=== PATIENT | female | born 1965 | race Caucasian/White ===

== ENCOUNTER 2016-05-07 11:38 | Emergency (ER) | payer MEDICARE, MEDICAID ==
[~2016-05-07] VITALS: Ht 175.3 cm; Wt 81.8 kg
[~2016-05-07 11:38] MED LIST: ABILIFY2 MG PO; ADDERALL; AMBIEN 10MG10 M1 PO; AMBIEN 10MG10 MG PO; AMBIEN5 MG PO; AMOXICILLIN 50500 MG PO; AMOXICILLIN 8751 TAB PO; AMPHETAMINE PO; ASPI325T6 PO; ATIVAN 1MG T1 MG/TAB PO; ATIVAN1 MG PO; AUGMENTIN 875 M1 TAB PO; BENADRYL; CEFTIN500 MG PO; CELEXA40 MG PO; CEPHALEXIN500 M1 PO; CLINDAMYCIN150 MG PO; CLONAZEPAM PO; DEPAKOTE DR500 MG PO; DEPAKOTE500 M1 PO; DIAMOX 250MG250 MG PO; DIAMOX SEQUELS500 M1 PO; ESKALITH C450 MG/TAB PO; FLAGYL250 MG PO; GEODON 20 MG20 MG PO; GEODON80 MG PO; IBUPROFEN 200200 MG PO; KLONOPIN 0.5MG0.5 MG PO; LEVOTHYROXINE PO; LITHIUM 30300 MG/CAP PO; LITHIUM CA150 MG/CAP PO; LITHOBID PO; LORTAB 5/500 501 TAB PO; MAGIC MOUTH PO; NAPROXEN ER500 MG PO; NEXIUM 40MG40 MG PO; NITRO-DUR0.1 MG/PAT TD; NYSTATIN OR100 MU/ML PO; OXYCONTIN 20MG20 MG PO; OXYCONTIN30 MG PO; OXYCONTIN60 MG PO; PERCOCET 325 MG1 TA2 PO; PERCOCET 325 MG1 TAB PO; PHENERGAN 25 TA25 MG PO; PROAIR HFA0.09 MG/AC IH; REGLAN 10MG10 MG/TAB PO; ROXICODONE 55 MG/TAB PO; ROXICODONE30 MG PO; SEROQUEL XR300 MG PO; SYNTHROID0.05 MG/TA PO; SYNTHROID0.075 MG/T PO; SYNTHROID0.1 MG/TAB PO; TOPROL XL 25MG25 MG PO; TRAZODONE150 MG PO; TRAZODONE50 MG PO; VALIUM 5MG T5 MG/TAB PO; VENTOLIN0.09 MG IH; VYVANCE; VYVANSE50 MG PO; WELLBUTRIN XL300 MG PO; ZIPRASIDONE; ZITHROMAX Z PA250 MG PO; ZOFRAN 4MG T4 MG/TAB PO; [UNRECOGNIZED DRUG - OTHER]; [UNRECOGNIZED DRUG - OTHER] PO
[2016-05-07 11:45] VITALS: BP 141/88; PULSE 78; TEMP 99.1
[2016-05-07] MEDS ORDERED: SEROQUEL400 MG PO (12:00)
[2016-05-07] MEDS ORDERED: NEXIUM 40MG40 MG PO (12:01)
[2016-05-07] MEDS ORDERED: SYNTHROID0.1 MG/TAB PO (12:01)
[2016-05-07] MEDS ORDERED: INDERAL 20MG20 MG PO (12:01)
[2016-05-07] MEDS ORDERED: CELEXA40 MG PO (12:07)
[2016-05-07] MEDS ORDERED: ZITHROMAX Z PA250 MG PO (12:35)
[2016-05-07] MEDS ORDERED: 00186-0370-20 IH (12:43)
== END 2016-05-07 13:21 | disposition home or self-care (01) ==
LOC: COL.ER 11:38
DX: J40 Bronchitis, not specified as acute or chronic (principal); F17.210 Nicotine dependence, cigarettes, uncomplicated

== ENCOUNTER 2016-12-26 23:22 | Emergency (ER) | payer MEDICARE, MEDICAID ==
[~2016-12-26] VITALS: Ht 175.3 cm; Wt 94.1 kg
[~2016-12-26 23:22] MED LIST changes: +00186-0370-20 IH; +INDERAL 20MG20 MG PO; +SEROQUEL400 MG PO
[2016-12-26 23:23] VITALS: BP 134/77; TEMP 98
[2016-12-27] MEDS ORDERED: 00186-0370-20 IH (00:05)
[2016-12-27] MEDS ORDERED: PREDNISONE20 MG PO (00:05)
[2016-12-27 00:23] VITALS: PULSE 94
== END 2016-12-27 00:24 | disposition home or self-care (01) ==
LOC: COL.ER 23:22
DX: J44.1 Chronic obstructive pulmonary disease with (acute) exacerbation (principal); F12.10 Cannabis abuse, uncomplicated; F17.210 Nicotine dependence, cigarettes, uncomplicated
CPT/HCPCS: J7512

== ENCOUNTER → 2017-01-29 | Outpatient (CLI) | payer MEDICARE, MEDICAID ==
[~2017-01-29] MED LIST changes: +PREDNISONE20 MG PO
== END ==
LOC: COL.PUL 11:22
DX: R05 Cough (principal); R07.9 Chest pain, unspecified; F17.210 Nicotine dependence, cigarettes, uncomplicated

== ENCOUNTER → 2017-02-10 | Outpatient (CLI) | payer MEDICARE, MEDICAID | LOC: BHSO 10:47 | DX: F31.11 Bipolar disorder, current episode manic without psychotic features, mild (principal) | CPT/HCPCS: 90791-AI ==

== ENCOUNTER → 2017-03-03 | Outpatient (CLI) | payer MEDICARE, MEDICAID | LOC: BHSO 10:21 | DX: F25.0 Schizoaffective disorder, bipolar type (principal) ==

== ENCOUNTER → 2017-04-02 | Outpatient (CLI) | payer MEDICARE, MEDICAID | LOC: BHSO 10:17 | DX: F25.0 Schizoaffective disorder, bipolar type (principal) ==

== ENCOUNTER → 2017-06-09 | Outpatient (CLI) | payer MEDICARE, MEDICAID | LOC: BHSO 10:32 | DX: F25.0 Schizoaffective disorder, bipolar type (principal) | CPT/HCPCS: G0463 ==

== ENCOUNTER → 2017-10-15 | Outpatient (CLI) | payer OTHER | LOC: BHSO 09:13 | DX: F25.0 Schizoaffective disorder, bipolar type (principal) | CPT/HCPCS: G0463 ==

== ENCOUNTER → 2017-11-18 | Outpatient (CLI) | payer OTHER | LOC: BHSO 09:36 | DX: F25.0 Schizoaffective disorder, bipolar type (principal) | CPT/HCPCS: G0463 ==

== ENCOUNTER 2017-12-01 16:15 | Emergency (ER) | payer MEDICARE, MEDICAID ==
[~2017-12-01] VITALS: Ht 175.3 cm; Wt 84.1 kg
[2017-12-01 16:24] VITALS: BP 113/82; TEMP 97.9
[2017-12-01] MEDS ORDERED: LITHIUM 60600 MG/CAP PO (16:45)
[2017-12-01 16:59] LABS: BASO % 0.2 % (0.0-2.0); EOS # 0.5 (0.0-0.7); EOS % 5.4 % (0-4.0); GRAN # 5.2 (1.4-6.5); GRAN % 55.3 % (42.2-75.2); HEMATOCRIT 42.6 % (37.0-47.0); HEMOGLOBIN 13.7 g/dl (12.5-16.0); LYMPH % 31.4 % (20.0-51.0); MEAN CELL VOLUME 90 fl (80.0-100.0); MEAN CORPUSCULAR HEMOGLOBIN 29 pg (27.0-31.0); MEAN CORPUSCULAR HGB CONC 32 g/dl (33.0-37.0); MEAN PLATELET VOLUME 9.7 fl (7.4-10.4); MONO # 0.7 (0.1-0.6); MONO % 7.4 % (1.7-9.3); PLATELET COUNT 286 K/mm3 (130-400); RED BLOOD COUNT 4.75 M/mm3 (4.10-5.30); REDCELL DISTRIBUTION WIDTH-CV 14.4 % (11.5-14.5)
[2017-12-01 17:06] LABS: PROTHROMBIN TIME 11.4 SECONDS (9.7-12.8)
[2017-12-01 17:12] LABS: ALANINE AMINOTRANSFERASE 42 U/L (9-52); ALBUMIN 4.1 gm/dL (3.5-5.0); ALKALINE PHOSPHATASE 86 U/L (50-136); ANION GAP 11 mmol/L (7-16); AST,SGOT 23 U/L (15-37); BILIRUBIN,TOTAL 0.3 mg/dL (0.0-1.0); BLOOD UREA NITROGEN 10 mg/dL (7-17); CALCIUM 9.3 mg/dL (8.4-10.2); CARBON DIOXIDE 22 mmol/L (22-30); CHLORIDE 105 mmol/L (98-107); CREATININE, serum 0.61 mg/dL (0.52-1.25); GLUCOSE 98 mg/dL (74-106); POTASSIUM 4.2 mmol/L (3.4-5.0); SODIUM 137 mmol/L (137-145); TOTAL PROTEIN 7.5 gm/dL (6.4-8.2)
[2017-12-01] MEDS ORDERED: SEROQUEL400 MG PO (17:13)
[2017-12-01] MEDS ORDERED: NEXIUM 20MG20 MG PO (17:14)
[2017-12-01] MEDS ORDERED: SYNTHROID 0.10.15 MG PO (17:14)
[2017-12-01] MEDS ORDERED: BELSOMRA20 MG PO (17:16)
[2017-12-01 17:21] LABS: TROPONIN-I < 0.012 ng/mL (0.000-0.034)
[2017-12-01 17:34] LABS: ARTERIAL BLD GAS O2 SATURATION 96.4 % (92-100); ARTERIAL BLD GAS TCO2 CT 21.7; ARTERIAL BLOOD GAS BASE EXCESS -3.2 (-2-2); ARTERIAL BLOOD GAS HCO3 20.7 meq/L (22-26); ARTERIAL BLOOD GAS PCO2 34.1 mmHg (35-45); ARTERIAL BLOOD GAS PO2 85.8 mmHg (80-100)
[2017-12-01] MEDS ORDERED: CEPHALEXIN500 M1 PO (18:40)
[2017-12-01 18:49] VITALS: PULSE 81
== END 2017-12-01 18:49 | disposition home or self-care (01) ==
LOC: COL.ER 16:15
PROVIDERS: Emergency Medicine
DX: R07.9 Chest pain, unspecified (principal); E03.9 Hypothyroidism, unspecified; F31.9 Bipolar disorder, unspecified; M54.9 Dorsalgia, unspecified; G89.29 Other chronic pain; F12.10 Cannabis abuse, uncomplicated; F17.210 Nicotine dependence, cigarettes, uncomplicated; Z90.49 Acquired absence of other specified parts of digestive tract; Z90.710 Acquired absence of both cervix and uterus
CPT/HCPCS: Q9967

== ENCOUNTER → 2017-12-18 | Outpatient (CLI) | payer MEDICARE, MEDICAID ==
[~2017-12-18] MED LIST changes: +BELSOMRA20 MG PO; +LITHIUM 60600 MG/CAP PO; +NEXIUM 20MG20 MG PO; +SYNTHROID 0.10.15 MG PO
== END ==
LOC: BHSO 09:44
DX: F25.0 Schizoaffective disorder, bipolar type (principal)
CPT/HCPCS: G0463

== ENCOUNTER 2018-01-17 08:10 | Emergency (ER) | payer MEDICARE, MEDICAID ==
[~2018-01-17] VITALS: Ht 175.3 cm; Wt 82.7 kg
[2018-01-17 08:14] VITALS: TEMP 97.8
[2018-01-17 09:25] LABS: COLLECTION METHOD CLEAN CATCH
[2018-01-17 09:28] LABS: BASO % 0.2 % (0.0-2.0); EOS # 0.1 (0.0-0.7); EOS % 0.8 % (0-4.0); GRAN # 9.8 (1.4-6.5); GRAN % 73.9 % (42.2-75.2); HEMATOCRIT 43.5 % (37.0-47.0); HEMOGLOBIN 13.8 g/dl (12.5-16.0); LYMPH # 2.5 (1.2-3.4); MEAN CELL VOLUME 92 fl (80.0-100.0); MEAN CORPUSCULAR HEMOGLOBIN 29 pg (27.0-31.0); MEAN CORPUSCULAR HGB CONC 32 g/dl (33.0-37.0); MEAN PLATELET VOLUME 9.5 fl (7.4-10.4); MONO # 0.8 (0.1-0.6); MONO % 5.8 % (1.7-9.3); PLATELET COUNT 339 K/mm3 (130-400); RED BLOOD COUNT 4.72 M/mm3 (4.10-5.30); REDCELL DISTRIBUTION WIDTH-CV 14.1 % (11.5-14.5)
[2018-01-17 09:34] LABS: LITHIUM 0.6 mmol/L (0.6-1.2)
[2018-01-17 09:39] LABS: ALBUMIN 4.6 gm/dL (3.5-5.0); BILIRUBIN,TOTAL 0.4 mg/dL (0.0-1.0); C-REACTIVE PROTEIN 0.6 mg/dL (0.0-0.9); CALCIUM 10.3 mg/dL (8.4-10.2); CREATININE, serum 0.6 mg/dL (0.52-1.25); TOTAL PROTEIN 8.8 gm/dL (6.4-8.2)
[2018-01-17 09:40] LABS: AMORPHOUS CRYSTAL Present /uL; MUCOUS Present /lpf; PH 7 (5-8); SQUAMOUS EPITHELIAL 20-50 /hpf; URINE APPEARANCE Cloudy; URINE BACTERIA Rare /hpf; URINE BILIRUBIN Negative (NEGATIVE); URINE BLOOD Negative (NEGATIVE); URINE COLOR Yellow; URINE GLUCOSE Negative (NEGATIVE); URINE KETONE Negative (NEGATIVE); URINE LEUKOCYTE ESTERASE Negative (NEGATIVE); URINE NITRATE Negative (NEGATIVE); URINE PROTEIN(semi-quant) 1+ (NEGATIVE); URINE RBC 0-2 /hpf; URINE UROBILINOGEN Negative (NEGATIVE)
[2018-01-17 09:42] LABS: TRICYCLIC ANTIDEPRESS URINE POSITIVE
[2018-01-17] MEDS ORDERED: ZOFRAN 4MG T4 MG/TAB PO (10:21)
[2018-01-17 10:45] VITALS: BP 172/95; PULSE 69
[2018-01-18] MEDS ORDERED: PHENERGAN 25 TA25 MG PO (00:55)
== END 2018-01-17 10:56 | disposition home or self-care (01) ==
LOC: COL.ER 08:10
PROVIDERS: Physician Assistant
DX: R11.10 Vomiting, unspecified (principal); I10 Essential (primary) hypertension; J44.9 Chronic obstructive pulmonary disease, unspecified; K21.9 Gastro-esophageal reflux disease without esophagitis; E03.9 Hypothyroidism, unspecified; F31.9 Bipolar disorder, unspecified; F17.210 Nicotine dependence, cigarettes, uncomplicated; Z90.49 Acquired absence of other specified parts of digestive tract; Z90.710 Acquired absence of both cervix and uterus
CPT/HCPCS: J2405; J7030

== ENCOUNTER 2018-01-17 22:40 | Emergency (ER) | payer MEDICARE, MEDICAID ==
[2018-01-17 22:43] VITALS: BP 146/89; TEMP 98.8
[2018-01-18] MEDS ORDERED: PHENERGAN 25 TA25 MG PO (00:55)
[2018-01-18 02:15] VITALS: PULSE 80
== END 2018-01-18 02:15 | disposition home or self-care (01) ==
LOC: COL.ER 22:40
DX: R11.10 Vomiting, unspecified (principal); F17.210 Nicotine dependence, cigarettes, uncomplicated; F12.90 Cannabis use, unspecified, uncomplicated; F32.9 Major depressive disorder, single episode, unspecified; Z90.49 Acquired absence of other specified parts of digestive tract; Z85.41 Personal history of malignant neoplasm of cervix uteri
CPT/HCPCS: J2550; J2765; J7030

== ENCOUNTER → 2018-04-16 | Outpatient (CLI) | payer MEDICARE, MEDICAID | LOC: BHSO 09:00 | DX: F25.0 Schizoaffective disorder, bipolar type (principal) | CPT/HCPCS: G0463 ==

== ENCOUNTER → 2018-06-15 | Outpatient (CLI) | payer MEDICARE, MEDICAID | LOC: BHSO 14:53 | DX: F25.0 Schizoaffective disorder, bipolar type (principal) | CPT/HCPCS: G0463 ==

== ENCOUNTER 2018-07-01 05:02 | Emergency (ER) | payer MEDICARE, MEDICAID ==
[~2018-07-01] VITALS: Ht 175.3 cm; Wt 81.8 kg
[2018-07-01 05:15] VITALS: BP 170/83; PULSE 104; TEMP 98.6
[2018-07-01 05:26] LABS: COLLECTION METHOD CLEAN CATCH
[2018-07-01 05:38] LABS: MUCOUS Present /lpf; PH 8 (5-8); SQUAMOUS EPITHELIAL 0-2 /hpf; URINE APPEARANCE Hazy; URINE BACTERIA Rare /hpf; URINE BILIRUBIN Negative (NEGATIVE); URINE BLOOD 2+ (NEGATIVE); URINE COLOR Straw; URINE GLUCOSE Negative (NEGATIVE); URINE KETONE Negative (NEGATIVE); URINE LEUKOCYTE ESTERASE 3+ (NEGATIVE); URINE NITRATE Negative (NEGATIVE); URINE PROTEIN(semi-quant) Negative (NEGATIVE); URINE RBC 0-2 /hpf; URINE UROBILINOGEN Negative (NEGATIVE)
[2018-07-01] MEDS ORDERED: PYRIDIUM 100MG100 MG PO (05:49)
[2018-07-01] MEDS ORDERED: OMNICEF 300MG300 MG PO (05:49)
== END 2018-07-01 06:10 | disposition home or self-care (01) ==
LOC: COL.ER 05:02
PROVIDERS: Emergency Medicine
DX: N39.0 Urinary tract infection, site not specified (principal); F31.9 Bipolar disorder, unspecified; F17.210 Nicotine dependence, cigarettes, uncomplicated; Z90.710 Acquired absence of both cervix and uterus

== ENCOUNTER → 2018-08-14 | Outpatient (CLI) | payer MEDICARE, MEDICAID ==
[~2018-08-14] MED LIST changes: +OMNICEF 300MG300 MG PO; +PYRIDIUM 100MG100 MG PO
== END ==
LOC: BHSO 14:11
DX: F25.0 Schizoaffective disorder, bipolar type (principal)
CPT/HCPCS: G0463

== ENCOUNTER 2018-08-16 13:58 | Emergency (ER) | payer MEDICARE, MEDICAID ==
[~2018-08-16] VITALS: Ht 172.7 cm; Wt 72.7 kg
[2018-08-16 14:07] VITALS: TEMP 99
[2018-08-16 15:06] LABS: BASO % 0.2 % (0.0-2.0); EOS # 0.2 (0.0-0.7); EOS % 1.4 % (0-4.0); GRAN % 58.5 % (42.2-75.2); HEMATOCRIT 37.6 % (37.0-47.0); HEMOGLOBIN 12.3 g/dl (12.5-16.0); LYMPH # 3.9 (1.2-3.4); LYMPH % 32.1 % (20.0-51.0); MEAN CELL VOLUME 90 fl (80.0-100.0); MEAN CORPUSCULAR HEMOGLOBIN 30 pg (27.0-31.0); MEAN CORPUSCULAR HGB CONC 33 g/dl (33.0-37.0); MEAN PLATELET VOLUME 9.8 fl (7.4-10.4); MONO # 0.9 (0.1-0.6); MONO % 7.6 % (1.7-9.3); PLATELET COUNT 296 K/mm3 (130-400); RED BLOOD COUNT 4.16 M/mm3 (4.10-5.30); REDCELL DISTRIBUTION WIDTH-CV 13.2 % (11.5-14.5)
[2018-08-16 15:32] LABS: ALANINE AMINOTRANSFERASE 43 U/L (9-52); ALKALINE PHOSPHATASE 77 U/L (50-136); ANION GAP 7 mmol/L (7-16); AST,SGOT 65 U/L (15-37); BILIRUBIN,TOTAL 0.3 mg/dL (0.0-1.0); BLOOD UREA NITROGEN 13 mg/dL (7-17); CALCIUM 9.1 mg/dL (8.4-10.2); CARBON DIOXIDE 26 mmol/L (22-30); CHLORIDE 104 mmol/L (98-107); CREATININE, serum 0.57 (0.52-1.25); GLUCOSE 99 mg/dL (74-106); SODIUM 136 mmol/L (137-145); TOTAL PROTEIN 7.2 gm/dL (6.4-8.2)
[2018-08-16 15:33] LABS: ACETAMINOPHEN < 10 ug/mL (10-30); ALCOHOL(ethanol),MEDICAL < 10 mg/dL; SALICYLATE < 1.0 mg/dL
[2018-08-16 15:34] LABS: COLLECTION METHOD CLEAN CATCH
[2018-08-16 15:38] LABS: LITHIUM 0.4 mmol/L (0.6-1.2)
[2018-08-16 15:41] LABS: PH 8 (5-8); SQUAMOUS EPITHELIAL 0-2 /hpf; URINE APPEARANCE Clear; URINE BACTERIA None Seen /hpf; URINE BILIRUBIN Negative (NEGATIVE); URINE BLOOD Negative (NEGATIVE); URINE COLOR Colorless; URINE GLUCOSE Negative (NEGATIVE); URINE KETONE Negative (NEGATIVE); URINE LEUKOCYTE ESTERASE Negative (NEGATIVE); URINE NITRATE Negative (NEGATIVE); URINE PROTEIN(semi-quant) Negative (NEGATIVE); URINE RBC 0-2 /hpf; URINE UROBILINOGEN Negative (NEGATIVE)
[2018-08-16 15:45] LABS: TRICYCLIC ANTIDEPRESS URINE POSITIVE
[2018-08-17 14:45] VITALS: BP 139/89; PULSE 97
== END 2018-08-17 14:45 ==
LOC: COL.ER 13:58
PROVIDERS: Emergency Medicine
DX: F29 Unspecified psychosis not due to a substance or known physiological condition (principal); F30.9 Manic episode, unspecified; I10 Essential (primary) hypertension; E03.9 Hypothyroidism, unspecified; F17.210 Nicotine dependence, cigarettes, uncomplicated; F12.90 Cannabis use, unspecified, uncomplicated
CPT/HCPCS: J1200; J1630; J2060

== ENCOUNTER → 2018-08-28 | Outpatient (REF) | LOC: ZLAB.WCH 09:10 | DX: Z01.89 Encounter for other specified special examinations (principal) ==

== ENCOUNTER 2018-11-19 16:28 | Emergency (ER) | payer MEDICARE, MEDICAID ==
[~2018-11-19] VITALS: Ht 175.3 cm; Wt 86.8 kg
[2018-11-19 16:31] VITALS: BP 133/74; TEMP 97.5
[2018-11-19] MEDS ORDERED: SEROQUEL400 MG PO (16:34)
[2018-11-19] MEDS ORDERED: LITHIUM 30300 MG/CAP PO (16:34)
[2018-11-19 16:40] VITALS: PULSE 120
== END 2018-11-19 17:20 | disposition left against medical advice (07) ==
LOC: COL.ER 16:28
DX: M54.5 Low back pain (principal); I10 Essential (primary) hypertension; F31.9 Bipolar disorder, unspecified

== ENCOUNTER 2019-02-03 20:17 | Emergency (ER) | payer MEDICARE, MEDICAID ==
[~2019-02-03] VITALS: Ht 175.3 cm; Wt 37.3 kg
[2019-02-03 20:21] VITALS: TEMP 98.2
[2019-02-03] MEDS ORDERED: PRILOTC (20:36)
[2019-02-03] MEDS ORDERED: ESKALITH C450 MG/TAB PO (20:36)
[2019-02-03] MEDS ORDERED: INDERAL 20MG20 MG PO (20:37)
[2019-02-03] MEDS ORDERED: DOXYCYCLINE 10100 MG PO (20:54)
[2019-02-03 21:50] VITALS: BP 128/82; PULSE 88
== END 2019-02-03 21:50 | disposition home or self-care (01) ==
LOC: COL.ER 20:17
DX: J01.90 Acute sinusitis, unspecified (principal); F32.9 Major depressive disorder, single episode, unspecified; E03.9 Hypothyroidism, unspecified; J44.9 Chronic obstructive pulmonary disease, unspecified; F17.210 Nicotine dependence, cigarettes, uncomplicated; Z90.710 Acquired absence of both cervix and uterus

== ENCOUNTER 2019-06-26 20:08 | Emergency (ER) | payer MEDICARE ==
[~2019-06-26] VITALS: Ht 175.3 cm; Wt 79.5 kg
[~2019-06-26 20:08] MED LIST changes: +DOXYCYCLINE 10100 MG PO; +PRILOTC
[2019-06-26 20:24] VITALS: BP 221/115; PULSE 64; TEMP 97.7
== END 2019-06-26 22:13 | disposition left against medical advice (07) ==
LOC: COL.ER 20:08
DX: F33.9 Major depressive disorder, recurrent, unspecified (principal); H10.9 Unspecified conjunctivitis; I10 Essential (primary) hypertension; E03.9 Hypothyroidism, unspecified; Z90.710 Acquired absence of both cervix and uterus; Z90.89 Acquired absence of other organs

== ENCOUNTER 2021-04-01 11:18 | Emergency (ER) | payer MEDICARE ==
[~2021-04-01] VITALS: Ht 175.3 cm; Wt 93.2 kg
[~2021-04-01 11:18] MED LIST changes: +CLEOCIN HCL300 MG PO; +RT ADVAIR 528 DISKUS IH
[2021-04-01] MEDS ORDERED: VIGAMOX 0.5% 3 M3 ML OP (11:58)
[2021-04-01 12:14] VITALS: BP 128/64; PULSE 80; TEMP 98.9
== END 2021-04-01 12:18 | disposition home or self-care (01) ==
LOC: COL.ER 11:18
DX: H10.89 Other conjunctivitis (principal); F31.9 Bipolar disorder, unspecified; J43.9 Emphysema, unspecified; Z97.3 Presence of spectacles and contact lenses; Z88.6 Allergy status to analgesic agent; Z88.8 Allergy status to other drugs, medicaments and biological substances; Z79.899 Other long term (current) drug therapy; Z79.51 Long term (current) use of inhaled steroids

== ENCOUNTER 2021-06-03 18:24 | Emergency (ER) | payer MEDICARE ==
[~2021-06-03] VITALS: Ht 175.3 cm; Wt 95.5 kg
[~2021-06-03 18:24] MED LIST changes: +VIGAMOX 0.5% 3 M3 ML OP
[2021-06-03 18:35] VITALS: TEMP 97.8
[2021-06-03] MEDS ORDERED: 00186-0370-20 IH (20:26)
[2021-06-03 20:28] VITALS: BP 173/101; PULSE 94
== END 2021-06-03 20:43 | disposition home or self-care (01) ==
LOC: COL.ER 18:24
DX: R51.9 Headache, unspecified (principal); F31.9 Bipolar disorder, unspecified; F41.9 Anxiety disorder, unspecified; J44.9 Chronic obstructive pulmonary disease, unspecified; Z88.6 Allergy status to analgesic agent; Z20.822 Contact with and (suspected) exposure to COVID-19; Z79.899 Other long term (current) drug therapy
CPT/HCPCS: J1200; J2765

== ENCOUNTER 2021-06-26 19:18 | Emergency (ER) | payer MEDICARE ==
[~2021-06-26] VITALS: Ht 175.3 cm; Wt 102.3 kg
[2021-06-26 19:22] VITALS: TEMP 97.2
[2021-06-26 19:55] LABS: COLLECTION METHOD CLEAN CATCH
[2021-06-26 19:58] LABS: BASO % 0.2 % (0.0-2.0); EOS # 0.3 K/mm3 (0.0-0.7); EOS % 4.1 % (0.0-4.0); GRAN # 3.8 K/mm3 (1.4-6.5); GRAN % 59.2 % (42.2-75.2); HEMATOCRIT 41.5 % (37.0-47.0); HEMOGLOBIN 13.6 g/dl (12.5-16.0); LYMPH # 1.9 K/mm3 (1.2-3.4); LYMPH % 30.4 % (20.0-51.0); MEAN CELL VOLUME 90 fl (80.0-100.0); MEAN CORPUSCULAR HEMOGLOBIN 29 pg (27-31); MEAN CORPUSCULAR HGB CONC 33 g/dl (33.0-37.0); MEAN PLATELET VOLUME 9.6 fl (7.4-10.4); MONO # 0.4 K/mm3 (0.1-0.6); MONO % 5.8 % (1.7-9.3); PLATELET COUNT 244 K/mm3 (130-400); RED BLOOD COUNT 4.63 M/mm3 (4.10-5.30); REDCELL DISTRIBUTION WIDTH-CV 16.2 % (11.5-14.5)
[2021-06-26 20:14] LABS: BILIRUBIN,TOTAL 0.3 mg/dL (0.2-1.2); CREATININE, serum 0.79 mg/dL (0.57-1.11); POTASSIUM 3.5 mmol/L (3.5-4.5); TOTAL PROTEIN 7.8 gm/dL (6.2-8.1)
[2021-06-26 20:16] LABS: MUCOUS Present (NOT PRESENT); PH 5 (5-8); URINE APPEARANCE Hazy (CLEAR/HAZY); URINE BACTERIA Rare /hpf (NONE SEEN); URINE BILIRUBIN Negative (NEGATIVE); URINE BLOOD Negative (NEGATIVE); URINE COLOR Yellow (YELLOW); URINE GLUCOSE Negative (NEGATIVE); URINE KETONE Negative (NEGATIVE); URINE LEUKOCYTE ESTERASE Negative (NEGATIVE); URINE NITRATE Negative (NEGATIVE); URINE PROTEIN(semi-quant) Negative (NEGATIVE); URINE UROBILINOGEN Negative (NEGATIVE)
[2021-06-26] MEDS ORDERED: CELEXA10 MG PO (20:16)
[2021-06-26] MEDS ORDERED: ZOFRAN ODT4 MG PO (20:42)
[2021-06-26] MEDS ORDERED: MACROBID 1100 MG/CAP PO (20:42)
[2021-06-26 21:01] VITALS: BP 142/84; PULSE 91
== END 2021-06-26 21:02 | disposition home or self-care (01) ==
LOC: COL.ER 19:18
PROVIDERS: Emergency Medicine
DX: K52.9 Noninfective gastroenteritis and colitis, unspecified (principal); N39.0 Urinary tract infection, site not specified; R74.8 Abnormal levels of other serum enzymes; F17.210 Nicotine dependence, cigarettes, uncomplicated; Z90.49 Acquired absence of other specified parts of digestive tract; Z20.822 Contact with and (suspected) exposure to COVID-19; Z32.02 Encounter for pregnancy test, result negative
CPT/HCPCS: J2405; J7030

== ENCOUNTER 2021-10-17 11:55 | Emergency (ER) | payer MEDICARE ==
[~2021-10-17] VITALS: Ht 175.3 cm; Wt 100.5 kg
[~2021-10-17 11:55] MED LIST changes: +CELEXA10 MG PO; +MACROBID 1100 MG/CAP PO; +ZOFRAN ODT4 MG PO
[2021-10-17 12:15] VITALS: BP 130/78; PULSE 85; TEMP 97.9
== END 2021-10-17 13:55 | disposition left against medical advice (07) ==
LOC: COL.ER 11:55
DX: J98.9 Respiratory disorder, unspecified (principal)

== ENCOUNTER 2021-11-12 22:58 | Emergency (ER) | payer MEDICARE ==
[~2021-11-12] VITALS: Ht 175.3 cm; Wt 96.4 kg
[2021-11-13 00:57] VITALS: BP 157/83; PULSE 90; TEMP 98.6
== END 2021-11-13 00:57 | disposition home or self-care (01) ==
LOC: COL.ER 22:58
DX: S00.83XA Contusion of other part of head, initial encounter (principal); S40.012A Contusion of left shoulder, initial encounter; Y04.8XXA Assault by other bodily force, initial encounter

== ENCOUNTER → 2021-12-19 | Outpatient (CLI) | payer MEDICARE | LOC: COL.RAD 10:13 | DX: Z12.2 Encounter for screening for malignant neoplasm of respiratory organs (principal); F17.210 Nicotine dependence, cigarettes, uncomplicated ==

== ENCOUNTER 2021-12-20 14:50 | Emergency (ER) | payer MEDICARE ==
[~2021-12-20] VITALS: Ht 175.3 cm; Wt 96.8 kg
[2021-12-20 14:59] VITALS: TEMP 97.1
[2021-12-20 15:27] LABS: BASO % 0.1 % (0.0-2.0); EOS # 0.3 K/mm3 (0.0-0.7); EOS % 3.2 % (0.0-4.0); GRAN % 62.9 % (42.2-75.2); HEMATOCRIT 41.5 % (37.0-47.0); HEMOGLOBIN 13.6 g/dl (12.5-16.0); LYMPH # 2.3 K/mm3 (1.2-3.4); LYMPH % 28.7 % (20.0-51.0); MEAN CELL VOLUME 91 fl (80.0-100.0); MEAN CORPUSCULAR HEMOGLOBIN 30 pg (27-31); MEAN CORPUSCULAR HGB CONC 33 g/dl (33.0-37.0); MONO # 0.4 K/mm3 (0.1-0.6); MONO % 4.8 % (1.7-9.3); PLATELET COUNT 251 K/mm3 (130-400); RED BLOOD COUNT 4.57 M/mm3 (4.10-5.30); REDCELL DISTRIBUTION WIDTH-CV 13.9 % (11.5-14.5)
[2021-12-20 15:48] LABS: ALANINE AMINOTRANSFERASE 41 U/L (0-55); ALBUMIN 3.9 gm/dL (3.5-5.0); ALKALINE PHOSPHATASE 82 U/L (40-150); ANION GAP 11 mmol/L (7-16); AST,SGOT 27 U/L (5-34); BILIRUBIN,TOTAL 0.2 mg/dL (0.2-1.2); BLOOD UREA NITROGEN 14 mg/dL (10-20); CALCIUM 9.4 mg/dL (8.4-10.2); CARBON DIOXIDE 22 mmol/L (22-29); CHLORIDE 106 mmol/L (98-107); CREATININE, serum 0.79 mg/dL (0.57-1.11); GLUCOSE 141 mg/dL (70-99); POTASSIUM 3.9 mmol/L (3.5-4.5); SODIUM 139 mmol/L (136-145); TOTAL PROTEIN 7.5 gm/dL (6.2-8.1)
[2021-12-20 15:49] LABS: PROTHROMBIN TIME 11.3 SECONDS (9.7-12.8)
[2021-12-20 15:52] LABS: PARTIAL THROMBOPLASTIN TIME 30.4 SECONDS (26.0-37.0)
[2021-12-20 15:55] LABS: TROPONIN-I < 0.010 ng/mL (0.00-0.033)
[2021-12-20 17:23] VITALS: BP 143/104; PULSE 81
== END 2021-12-20 17:23 | disposition home or self-care (01) ==
LOC: COL.ER 14:50
PROVIDERS: Family Medicine
DX: J44.9 Chronic obstructive pulmonary disease, unspecified (principal); F17.210 Nicotine dependence, cigarettes, uncomplicated

== ENCOUNTER 2022-02-07 12:10 | Emergency (ER) | payer MEDICARE ==
[~2022-02-07] VITALS: Ht 175.3 cm; Wt 95.5 kg
[2022-02-07 15:51] LABS: BASO % 0.3 % (0.0-2.0); EOS # 0.3 K/mm3 (0.0-0.7); GRAN # 5.9 K/mm3 (1.4-6.5); GRAN % 63.4 % (42.2-75.2); HEMATOCRIT 40.1 % (37.0-47.0); HEMOGLOBIN 13.4 g/dl (12.5-16.0); LYMPH # 2.5 K/mm3 (1.2-3.4); LYMPH % 26.6 % (20.0-51.0); MEAN CELL VOLUME 90 fl (80.0-100.0); MEAN CORPUSCULAR HEMOGLOBIN 30 pg (27-31); MEAN CORPUSCULAR HGB CONC 33 g/dl (33.0-37.0); MEAN PLATELET VOLUME 10.2 fl (7.4-10.4); MONO # 0.6 K/mm3 (0.1-0.6); MONO % 6.4 % (1.7-9.3); PLATELET COUNT 262 K/mm3 (130-400); RED BLOOD COUNT 4.45 M/mm3 (4.10-5.30); REDCELL DISTRIBUTION WIDTH-CV 13.3 % (11.5-14.5)
[2022-02-07 16:05] LABS: ALANINE AMINOTRANSFERASE 42 U/L (0-55); ALBUMIN 3.9 gm/dL (3.5-5.0); ALKALINE PHOSPHATASE 111 U/L (40-150); ANION GAP 9 mmol/L (7-16); AST,SGOT 32 U/L (5-34); BILIRUBIN,TOTAL 0.3 mg/dL (0.2-1.2); BLOOD UREA NITROGEN 16 mg/dL (10-20); C-REACTIVE PROTEIN 0.62 mg/dL (0.00-0.50); CALCIUM 9.4 mg/dL (8.4-10.2); CARBON DIOXIDE 28 mmol/L (22-29); CHLORIDE 103 mmol/L (98-107); CREATININE, serum 0.72 mg/dL (0.57-1.11); GLUCOSE 99 mg/dL (70-99); POTASSIUM 4.5 mmol/L (3.5-4.5); SODIUM 140 mmol/L (136-145); TOTAL PROTEIN 7.3 gm/dL (6.2-8.1)
[2022-02-07 16:16] LABS: TROPONIN-I < 0.010 ng/mL (0.00-0.033)
[2022-02-07 16:19] LABS: TRICYCLIC ANTIDEPRESS URINE POSITIVE
[2022-02-07 16:39] LABS: COLLECTION METHOD CLEAN CATCH
[2022-02-07 16:52] LABS: SQUAMOUS EPITHELIAL None Seen /hpf (0-10); URINE APPEARANCE Clear (CLEAR/HAZY); URINE BACTERIA None Seen /hpf (NONE SEEN); URINE COLOR Yellow (YELLOW); URINE PROTEIN(semi-quant) Negative (NEGATIVE); URINE RBC None Seen /hpf (0-2)
[2022-02-07 16:53] LABS: URINE BLOOD Negative (NEGATIVE); URINE GLUCOSE Negative (NEGATIVE); URINE KETONE Negative (NEGATIVE); URINE NITRATE Negative (NEGATIVE); URINE UROBILINOGEN 0.2 E.U/dL (0.2-1.0)
[2022-02-07] MEDS ORDERED: ZITHROMAX Z PA250 MG PO (18:34)
[2022-02-07] MEDS ORDERED: PREDNISONE20 MG PO (18:34)
[2022-02-07 19:26] VITALS: BP 133/79; PULSE 82; TEMP 98.5
== END 2022-02-07 19:30 | disposition home or self-care (01) ==
LOC: COL.ER 12:10
PROVIDERS: Nurse Practitioner
DX: J20.9 Acute bronchitis, unspecified (principal); F17.210 Nicotine dependence, cigarettes, uncomplicated; Z20.822 Contact with and (suspected) exposure to COVID-19
CPT/HCPCS: J1885; J2060; J2270; J7030; J7512

== ENCOUNTER 2022-06-18 11:37 | Emergency (ER) | payer MEDICARE ==
[~2022-06-18] VITALS: Ht 185.4 cm; Wt 90.9 kg
[~2022-06-18 11:37] MED LIST changes: +ASPIRIN 32325 MG/TAB; +BELSOMRA20 MG; +COGENTIN 1MG1 MG/TAB PO; +CRESTOR5 MG PO; +LEADER CLE17 GM/Dose PO; +LIPITOR 10MG10 MG PO; +LOTRISONE CREAM15 GM TP; +MASON NATURAL2000 IU PO; +MULTI VITAMINS1 TAB PO; +NORVASC 5MG5 MG/TAB PO; +PRIL40 PO; +PROTONIX 40MG T40 MG PO; +SEROQUEL 200MG200 MG PO; +SYNTHROID0.1 MG/TAB; +VYVANSE70 MG PO; +ZESTRIL 20MG TA20 MG PO
[2022-06-18 12:58] LABS: COLLECTION METHOD CLEAN CATCH
[2022-06-18 12:59] LABS: BASO % 0.4 % (0.0-2.0); EOS # 0.2 K/mm3 (0.0-0.7); EOS % 2.7 % (0.0-4.0); GRAN # 4.9 K/mm3 (1.4-6.5); GRAN % 59.9 % (42.2-75.2); HEMOGLOBIN 11.9 g/dl (12.5-16.0); LYMPH # 2.2 K/mm3 (1.2-3.4); MEAN CELL VOLUME 85 fl (80.0-100.0); MEAN CORPUSCULAR HEMOGLOBIN 29 pg (27-31); MEAN CORPUSCULAR HGB CONC 34 g/dl (33.0-37.0); MEAN PLATELET VOLUME 8.7 fl (7.4-10.4); MONO # 0.8 K/mm3 (0.1-0.6); MONO % 9.6 % (1.7-9.3); PLATELET COUNT 325 K/mm3 (130-400); RED BLOOD COUNT 4.18 M/mm3 (4.10-5.30); REDCELL DISTRIBUTION WIDTH-CV 13.6 % (11.5-14.5)
[2022-06-18 13:01] LABS: HEMATOCRIT 35.4 % (37.0-47.0)
[2022-06-18 13:08] LABS: URINE APPEARANCE Clear (CLEAR/HAZY); URINE COLOR Yellow (YELLOW)
[2022-06-18 13:09] LABS: URINE BLOOD 1+ (NEGATIVE); URINE GLUCOSE Negative (NEGATIVE); URINE KETONE Negative (NEGATIVE); URINE NITRATE Negative (NEGATIVE); URINE PROTEIN(semi-quant) Negative (NEGATIVE); URINE UROBILINOGEN 0.2 E.U/dL (0.2-1.0)
[2022-06-18 13:12] LABS: ALANINE AMINOTRANSFERASE 35 U/L (0-55); ALKALINE PHOSPHATASE 94 U/L (40-150); ANION GAP 11 mmol/L (7-16); AST,SGOT 31 U/L (5-34); BILIRUBIN,TOTAL 0.2 mg/dL (0.2-1.2); BLOOD UREA NITROGEN 17 mg/dL (10-20); CALCIUM 9.5 mg/dL (8.4-10.2); CARBON DIOXIDE 25 mmol/L (22-29); CHLORIDE 104 mmol/L (98-107); CREATININE, serum 0.79 mg/dL (0.57-1.11); GLUCOSE 120 mg/dL (70-99); POTASSIUM 3.9 mmol/L (3.5-4.5); SODIUM 140 mmol/L (136-145); TOTAL PROTEIN 7.6 gm/dL (6.2-8.1)
[2022-06-18 13:17] LABS: ACETAMINOPHEN < 1.0 ug/mL (10-30); ALCOHOL(ethanol),MEDICAL < 10 mg/dL (0-10); SALICYLATE < 5.0 mg/dL (15.0-30.0)
[2022-06-18 13:22] LABS: TRICYCLIC ANTIDEPRESS URINE POSITIVE
[2022-06-18 13:23] LABS: URINE BACTERIA Rare /hpf (NONE SEEN)
[2022-06-18] MEDS ORDERED: TRILEPTAL 300M300 MG (21:57)
[2022-06-19 08:48] VITALS: BP 123/70; PULSE 124; TEMP 97.9
== END 2022-06-19 08:48 ==
LOC: COL.ER 11:37
PROVIDERS: Nurse Practitioner
DX: F29 Unspecified psychosis not due to a substance or known physiological condition (principal); N39.0 Urinary tract infection, site not specified; Z20.822 Contact with and (suspected) exposure to COVID-19
CPT/HCPCS: J3486

== ENCOUNTER 2022-08-30 06:08 | Emergency (ER) | payer MEDICARE ==
[~2022-08-30] VITALS: Ht 175.3 cm; Wt 91.4 kg
[~2022-08-30 06:08] MED LIST changes: +TRILEPTAL 300M300 MG
[2022-08-30 06:13] VITALS: TEMP 97.9
[2022-08-30 06:40] LABS: COLLECTION METHOD CLEAN CATCH
[2022-08-30 06:44] LABS: MUCOUS Present (NOT PRESENT); SQUAMOUS EPITHELIAL 0-2 /hpf (0-10); URINE BACTERIA Rare /hpf (NONE SEEN); URINE RBC None Seen /hpf (0-2)
[2022-08-30 06:51] LABS: PH 6.5 (5-8); URINE APPEARANCE Clear (CLEAR/HAZY); URINE BLOOD TRACE-INTACT (NEGATIVE); URINE COLOR Straw (YELLOW); URINE GLUCOSE Negative (NEGATIVE); URINE KETONE Negative (NEGATIVE); URINE NITRATE Negative (NEGATIVE); URINE PROTEIN(semi-quant) Negative (NEGATIVE); URINE UROBILINOGEN 0.2 (NEGATIVE)
[2022-08-30 07:56] VITALS: BP 161/86; PULSE 79
== END 2022-08-30 08:01 | disposition home or self-care (01) ==
LOC: COL.ER 06:08
PROVIDERS: Emergency Medicine
DX: R30.0 Dysuria (principal); R06.00 Dyspnea, unspecified; F17.200 Nicotine dependence, unspecified, uncomplicated; Z28.310 Unvaccinated for COVID-19

== ENCOUNTER 2023-11-27 09:04 | Emergency (ER) | payer MEDICARE, MEDICAID ==
[~2023-11-27] VITALS: Ht 170.2 cm; Wt 59.1 kg
[2023-11-27 09:06] VITALS: BP 183/120; TEMP 97.1
[2023-11-27] MEDS ORDERED: NS 1,000 ML IV ONE (09:30)
[2023-11-27] MEDS ORDERED: OLANZapine 10 MG Orally-Disinteg TAB PO ONE (09:30)
[2023-11-27 10:00] LABS: BASO % 0.2 % (0.0-2.0); EOS % 0.4 % (0.0-4.0); GRAN # 7.5 K/mm3 (1.4-6.5); GRAN % 70.4 % (42.2-75.2); HEMATOCRIT 37.4 % (37.0-47.0); HEMOGLOBIN 12.5 g/dl (12.5-16.0); LYMPH # 2.4 K/mm3 (1.2-3.4); LYMPH % 22.1 % (20.0-51.0); MEAN CELL VOLUME 90 fl (80.0-100.0); MEAN CORPUSCULAR HEMOGLOBIN 30 pg (27-31); MEAN CORPUSCULAR HGB CONC 33 g/dl (33.0-37.0); MEAN PLATELET VOLUME 9.6 fl (7.4-10.4); MONO # 0.7 K/mm3 (0.1-0.6); MONO % 6.6 % (1.7-9.3); PLATELET COUNT 284 K/mm3 (130-400); RED BLOOD COUNT 4.16 M/mm3 (4.10-5.30); REDCELL DISTRIBUTION WIDTH-CV 12.8 % (11.5-14.5)
[2023-11-27 10:15] LABS: ALANINE AMINOTRANSFERASE 25 U/L (0-55); ALBUMIN 4.6 g/dL (3.5-5.0); ALCOHOL(ethanol),MEDICAL < 10 mg/dL (0-10); ALKALINE PHOSPHATASE 84 U/L (40-150); ANION GAP 12 mmol/L (7-16); AST,SGOT 24 U/L (5-34); BILIRUBIN,TOTAL 0.4 mg/dL (0.2-1.2); BLOOD UREA NITROGEN 15 mg/dL (10-20); CHLORIDE 99 mEq/L (98-107); CREATININE, serum 0.81 mg/dL (0.57-1.11); GLUCOSE 103 mg/dL (70-99); POTASSIUM 4.4 mEq/L (3.5-4.5); SALICYLATE < 5.0 mg/dL (15.0-30.0); SODIUM 138 mEq/L (136-145); TOTAL PROTEIN 8.2 g/dl (6.2-8.1)
[2023-11-27] MEDS ORDERED: diphenhydrAMINE 50 MG/ML 1 ML VIAL IM ONE (10:30)
[2023-11-27] MEDS ORDERED: Haloperidol Lactate 5 MG/ML VIAL IM ONE (10:30)
[2023-11-27] MEDS ORDERED: LORazepam 2 MG/ML 1 ML VIAL IM ONE (10:30)
[2023-11-27 11:46] VITALS: PULSE 88
[2023-11-28] MEDS ORDERED: PRINIVIL40 MG PO (08:35)
[2023-11-28] MEDS ORDERED: PRILOSEC10 MG PO (08:35)
[2023-11-28] MEDS ORDERED: KLONOPIN 0.5MG0.5 MG PO (08:35)
[2023-11-28] MEDS ORDERED: CRESTOR5 MG PO (08:37)
[2023-11-28] MEDS ORDERED: EUTHYROX100 MCG PO (08:37)
[2023-11-28] MEDS ORDERED: GEODON80 MG PO (08:41)
[2023-11-28] MEDS ORDERED: CAPLYTA42 MG PO (08:49)
== END 2023-11-27 11:46 | disposition home or self-care (01) ==
LOC: COL.ER 09:04
PROVIDERS: Personal Emergency Response Attendant
DX: F22 Delusional disorders (principal); F10.129 Alcohol abuse with intoxication, unspecified

== ENCOUNTER 2023-11-27 22:49 | Emergency (ER) | payer MEDICARE, MEDICAID ==
[~2023-11-27] VITALS: Ht 170.2 cm; Wt 90.9 kg
[2023-11-27] MEDS ORDERED: NS 1,000 ML IV ONE (23:15)
[2023-11-27] MEDS ORDERED: Haloperidol Lactate 5 MG/ML VIAL IV ONE (23:30)
[2023-11-27] MEDS ORDERED: diphenhydrAMINE 50 MG/ML 1 ML VIAL IV ONE (23:30)
[2023-11-27] MEDS ORDERED: Ketorolac 15 MG/ML VIAL IV ONE (23:45)
[2023-11-27 23:51] LABS: BASO % 0.2 % (0.0-2.0); EOS # 0.1 K/mm3 (0.0-0.7); EOS % 0.7 % (0.0-4.0); GRAN # 7.3 K/mm3 (1.4-6.5); GRAN % 58.9 % (42.2-75.2); HEMATOCRIT 39.5 % (37.0-47.0); LYMPH # 3.9 K/mm3 (1.2-3.4); LYMPH % 31.2 % (20.0-51.0); MEAN CELL VOLUME 91 fl (80.0-100.0); MEAN CORPUSCULAR HEMOGLOBIN 30 pg (27-31); MEAN CORPUSCULAR HGB CONC 33 g/dl (33.0-37.0); MEAN PLATELET VOLUME 9.6 fl (7.4-10.4); MONO # 1.1 K/mm3 (0.1-0.6); MONO % 8.7 % (1.7-9.3); PLATELET COUNT 325 K/mm3 (130-400); RED BLOOD COUNT 4.35 M/mm3 (4.10-5.30)
[2023-11-28 00:10] LABS: ALANINE AMINOTRANSFERASE 29 U/L (0-55); ALBUMIN 4.7 g/dL (3.5-5.0); ALKALINE PHOSPHATASE 83 U/L (40-150); ANION GAP 16 mmol/L (7-16); AST,SGOT 27 U/L (5-34); BILIRUBIN,TOTAL 0.5 mg/dL (0.2-1.2); BLOOD UREA NITROGEN 20 mg/dL (10-20); CALCIUM 10.1 mg/dL (8.4-10.2); CHLORIDE 102 mEq/L (98-107); CREATININE, serum 1.11 mg/dL (0.57-1.11); GLUCOSE 95 mg/dL (70-99); POTASSIUM 4.1 mEq/L (3.5-4.5); SODIUM 140 mEq/L (136-145); TOTAL PROTEIN 8.3 g/dl (6.2-8.1)
[2023-11-28 00:16] LABS: ALCOHOL(ethanol),MEDICAL < 10 mg/dL (0-10); SALICYLATE < 5.0 mg/dL (15.0-30.0)
[2023-11-28 00:29] LABS: TSH w REFLEX 6.422 uIU/mL (0.350-4.940)
[2023-11-28 00:39] LABS: COLLECTION METHOD CLEAN CATCH
[2023-11-28] MEDS ORDERED: QUEtiapine 100 MG TAB PO ONE (01:00)
[2023-11-28 01:04] LABS: URINE APPEARANCE Clear (CLEAR/HAZY); URINE COLOR Yellow (YELLOW); URINE GLUCOSE Negative (NEGATIVE); URINE KETONE 1+ (NEGATIVE); URINE NITRATE Negative (NEGATIVE); URINE PROTEIN(semi-quant) Negative (NEGATIVE); URINE UROBILINOGEN 0.2 E.U/dL (0.2-1.0)
[2023-11-28 01:05] LABS: TRICYCLIC ANTIDEPRESS URINE NEGATIVE (NEGATIVE); URINE BLOOD TRACE-INTACT (NEGATIVE)
[2023-11-28] MEDS ORDERED: PRINIVIL40 MG PO (08:35)
[2023-11-28] MEDS ORDERED: KLONOPIN 0.5MG0.5 MG PO (08:35)
[2023-11-28] MEDS ORDERED: PRILOSEC10 MG PO (08:35)
[2023-11-28] MEDS ORDERED: EUTHYROX100 MCG PO (08:37)
[2023-11-28] MEDS ORDERED: CRESTOR5 MG PO (08:37)
[2023-11-28] MEDS ORDERED: GEODON80 MG PO (08:41)
[2023-11-28] MEDS ORDERED: CAPLYTA42 MG PO (08:49)
[2023-11-28] MEDS ORDERED: clonazePAM 0.5 MG TAB PO PRN (09:00)
[2023-11-28] MEDS ORDERED: Citalopram 20 MG TAB PO SCH (09:00)
[2023-11-28] MEDS ORDERED: Lisinopril 20 MG TAB PO SCH (09:01)
[2023-11-28] MEDS ORDERED: Omeprazole 40 MG **** subs to Pantoprazole 40 MG PO SCH (09:01)
[2023-11-28] MEDS ORDERED: Propranolol 20 MG TAB PO SCH (09:02)
[2023-11-28] MEDS ORDERED: Ziprasidone 20 MG CAP PO SCH (09:03)
[2023-11-28] MEDS ORDERED: Naproxen 250 MG TAB PO ONE (14:30)
[2023-11-28] MEDS ORDERED: Atorvastatin 10 MG TAB PO SCH (20:36)
[2023-11-28] MEDS ORDERED: Mag/Al Hydrox/Simeth Susp 30 ML CUP PO ONE (20:47)
[2023-11-28] MEDS ORDERED: QUEtiapine 100 MG TAB PO SCH (21:00)
[2023-11-28] MEDS ORDERED: Rosuvastatin 5 MG **** subs to Atorvastatin 10 MG PO SCH (21:00)
[2023-11-29] MEDS ORDERED: Omeprazole 40 MG **** subs to Pantoprazole 40 MG PO SCH (07:00)
[2023-11-29] MEDS ORDERED: Naproxen 250 MG TAB PO ONE (15:00)
[2023-11-29] MEDS ORDERED: Atorvastatin 10 MG TAB PO SCH (21:00)
[2023-11-30] MEDS ORDERED: Ibuprofen 600 MG TAB PO ONE (19:15)
[2023-12-01] MEDS ORDERED: Ibuprofen 400 MG TAB PO ONE (17:45)
[2023-12-01] MEDS ORDERED: Lidocaine 4% Topical Patch TP ONE (17:45)
[2023-12-01] MEDS ORDERED: clonazePAM 0.5 MG TAB PO ONE (17:45)
--- NOTE | 2023-12-02 12:16 | NUR ---
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 Court ordered psych placement at an appropriate facility. Randy is assisting with the placement. Patient would prefer [facility]. ANG notified ER physician and Yazmin, nurse, of court hearing decision.
[2023-12-02] MEDS ORDERED: Polyethylene Glycol 3350 17 GM PDS PO SCH (16:08)
[2023-12-03] MEDS ORDERED: Ibuprofen 600 MG TAB PO ONE (10:30)
[2023-12-03 15:56] VITALS: BP 104/65; PULSE 60; TEMP 98.2
== END 2023-12-03 16:20 ==
LOC: COL.ER 22:49
PROVIDERS: Physician Assistant
DX: F23 Brief psychotic disorder (principal); I10 Essential (primary) hypertension
CPT/HCPCS: J1200; J1630; J1885; J7030